=== PATIENT | female | born 1935 | race Caucasian/White ===

== ENCOUNTER 2022-01-18 23:47 | Emergency (ER) | payer OTHER ==
[~2022-01-18] VITALS: Ht 162.6 cm; Wt 83.0 kg
[2022-01-18 23:49] VITALS: BP 98/81
--- NOTE | 2022-01-18 23:56 | NUR ---
Dr. Reinoso at triage to exam patient.
[2022-01-19] MEDS ORDERED: DEXTROSE 50% 50 ML SYR IVP ONE (00:10)
--- NOTE | 2022-01-19 00:30 | NUR ---
C/O low blood sugar x today. Per family reported, got Humulog 15 units ( accidently) 21.30 PM , blood sugar drop 69. Her family given food and candy. PMHx: HTN, DM, Heart Problems, Sx: Stent, Cataract
--- NOTE | 2022-01-19 02:00 | NUR ---
ORANGE JUICE GIVEN
--- NOTE | 2022-01-19 02:25 | NUR ---
Patient discharged with v/s stable. Written and verbal after care instructions given and explained. Patient verbalized understanding. Ambulatory with steady gait. All questions addressed prior to discharge. Advised to follow up with PMD.
== END 2022-01-19 02:25 | disposition home or self-care (01) ==
LOC: MED 23:47
DX: E16.2 Hypoglycemia, unspecified (principal)
CPT/HCPCS: 96374; 99283